=== PATIENT | female | born 1985 | race African-American/Black ===

== ENCOUNTER 2017-11-16 14:36 | Emergency (ER) | payer SELFPAY ==
[2017-11-16 15:47] LABS: Hematocrit 21 % (35-47); Hemoglobin 6.4 g/dl (12.0-16.0); Mean Corpuscular HGB Conc 30 g/dl (31-36); Mean Corpuscular Hemoglobin 19 pg (27-31); Mean Corpuscular Volume 63 fL (80-97); Mean Platelet Volume 8 um3 (7.4-10.4); Platelet Count 312 10^3/ul (150-450); Red Blood Count 3.37 10^6/ul (4.0-5.4); Red Cell Distribution Width 20 % (10.5-15); White Blood Count 5.5 10^3/ul (3.5-10.8)
[2017-11-16] MEDS ORDERED: diPHENhydraMINE PO* 50 MG PO ONE (15:51)
[2017-11-16] MEDS ORDERED: Metoclopramide IV* 5 MG/ML 2 ML VIAL IV ONE (15:51)
[2017-11-16] MEDS ORDERED: Ketorolac INJ* 30 MG/ML 1 ML VIAL IV ONE (15:51)
[2017-11-16] MEDS ORDERED: NS 0.9% 1000 ML* 1,000 ML IV ONE (15:51)
--- NOTE | 2017-11-16 15:57 | RAD ---
INDICATION: Headache. COMPARISON: There are no prior studies available for comparison. TECHNIQUE: Contiguous axial sections of the brain were obtained from the skull base to the vertex without contrast. FINDINGS: The ventricles, cisterns and sulci are within normal limits. No significant focal abnormality or mass effect is seen. There is no evidence for hemorrhage. No significant focal osseous abnormality is seen. The visualized portion of the paranasal sinuses and mastoid air cells appear clear. IMPRESSION: NO EVIDENCE FOR ACUTE INTRACRANIAL ABNORMALITY.
[2017-11-16 16:11] LABS: ABS Basophils 0 10^3/ul (0-0.2); ABS Eosinophils 0.1 10^3/ul (0-0.6); ABS Lymphocytes 1.7 10^3/ul (1.0-4.8); ABS Monocytes 0.5 10^3/ul (0-0.8); ABS Neutrophils 3.2 10^3/ul (1.5-7.7); ABS Nucleated RBC 0 10^3/ul; Eosinophil % 1.3 % (0-6); Lymphocyte % 31.7 % (25-47); Nucleated Red Blood Cells % 0.1
[2017-11-16 19:25] LABS: EGFR Non-African American 108.8 (>60)
[2017-11-16] MEDS ORDERED: Acetaminophen TAB* 325 MG PO ONE (21:42)
--- NOTE | 2017-11-16 21:56 | ED ---
Cecy Blevins Julia, scribed for Kristian Brown MD on 11/16/17 at 1517 . Headache - HPI Summary HPI Summary: This patient is a 32 year old F BIBA to [facility] with a chief complaint of sharp waxing and waning left sided headache every 5 minutes for the past four days. The patient rates the pain 8/10 in severity. Patient reports R finger numbness. Patient denies nausea, photophobia. Patient denies significant history of headaches. Symptoms unchanged by Ibuprofen. - History Of Current Complaint Chief Complaint: EDSyncope Stated Complaint: SYNCOPE/HEADACHE Time Seen by Provider: 11/16/17 14:51 Hx Obtained From: Patient Onset/Duration: Started days ago, Still Present Timing: Constant - waxing and waning Character: Sharp Location of Headache: Other: - left sided Aggravating Factor: Nothing Allevating Factors: Nothing Associated Signs And Symptoms: Other (Noted In Comments) - R finger numbness - Allergies/Home Medications Allergies/Adverse Reactions: Allergies Allergy/AdvReac Type Severity Reaction Status Date / Time No Known Allergies Allergy Verified 11/16/17 20:09 PMH/Surg Hx/FS Hx/Imm Hx Endocrine/Hematology History: Reports: Hx Anemia EENT History: Denies: Hx Deafness Neurological History: Denies: Hx Headaches Infectious Disease History: No Infectious Disease History: Denies: Traveled Outside the [place] in Last 30 Days - Family History Known Family History: Positive: Diabetes - Social History Hx Tobacco Use: Yes Smoking Status (MU): Light Every Day Tobacco Smoker Review of Systems Negative: Photophobia Negative: Nausea Positive: Headache - left side, Numbness - R fingers All Other Systems Reviewed And Are Negative: Yes Physical Exam - Summary Physical Exam Summary: Appearance: The patient is well-nourished in no acute distress and in no acute pain. Skin: The skin is warm and dry and skin color reflects adequate perfusion. HEENT: The head is normocephalic and atraumatic. The pupils are equal and reactive. The conjunctivae are clear and without drainage. Nares are patent and without drainage. Mouth reveals moist mucous membranes and the throat is without erythema and exudate. The external ears are intact. The ear canals are patent and without drainage. The tympanic membranes are intact. Neck: the neck is supple with full range of motion and non-tender. There are no carotid bruits. There is no neck vein distension. Respiratory: Chest is non-tender. Lungs are clear to auscultation and breath sounds are symmetrical and equal. Cardiovascular: Heart is regular rate and rhythm. There is no murmur or rub auscultated. There is no peripheral edema and pulses are symmetrical and equal. Abdomen: The abdomen is soft and non-tender. There are normal bowel sounds heard in all four quadrants and there is no organomegaly palpated. Musculoskeletal: There is no back tenderness noted. Extremities are non-tender with full range of motion. There is good capillary refill. There is no peripheral edema or calf tenderness elicited. Neurological: Patient is alert and oriented to person, place and time. The patient has symmetrical motor strength in all four extremities. Cranial nerves are grossly intact. Deep tendon reflexes are symmetrical and equal in all four extremities. Psychiatric: The patient has an appropriate affect and does not exhibit any anxiety or depression. Triage Information Reviewed: Yes Vital Signs On Initial Exam: Initial Vitals Temp Pulse Resp BP Pulse Ox 98.4 F 68 18 120/76 100 11/16/17 15:07 11/16/17 15:07 11/16/17 15:07 11/16/17 15:07 11/16/17 15:07 Vital Signs Reviewed: Yes Diagnostics - Vital Signs Vital Signs Temp Pulse Resp BP Pulse Ox 11/16/17 15:07 98.4 F 68 18 120/76 100 - Laboratory Lab Results: Lab Results 11/16/17 11/16/17 11/16/17 Range/Units 15:13 15:13 15:13 WBC 5.5 (3.5-10.8) 10^3/ul RBC 3.37 L (4.0-5.4) 10^6/ul Hgb 6.4 L* (12.0-16.0) g/dl Hct 21 L (35-47) % MCV 63 L (80-97) fL MCH 19 L (27-31) pg MCHC 30 L (31-36) g/dl RDW 20 H (10.5-15) % Plt Count 312 (150-450) 10^3/ul MPV 8 (7.4-10.4) um3 Neut % (Auto) 57.9 (38-83) % Lymph % (Auto) 31.7 (25-47) % [place] % (Auto) 8.4 H (0-7) % Eos % (Auto) 1.3 (0-6) % Baso % (Auto) 0.7 (0-2) % Absolute Neuts (auto) 3.2 (1.5-7.7) 10^3/ul Absolute Lymphs (auto) 1.7 (1.0-4.8) 10^3/ul Absolute Monos (auto) 0.5 (0-0.8) 10^3/ul Absolute Eos (auto) 0.1 (0-0.6) 10^3/ul Absolute Basos (auto) 0 (0-0.2) 10^3/ul Absolute Nucleated RBC 0 10^3/ul Nucleated RBC % 0.1 Hypochromasia 2+ Anisocytosis 2+ Target Cells 2+ Hem Pathologist Commnt Pending Sodium 135 (133-145) mmol/L Potassium 4.1 (3.5-5.0) mmol/L Chloride 106 (101-111) mmol/L Carbon Dioxide 25 (22-32) mmol/L Anion Gap 4 (2-11) mmol/L BUN 13 (6-24) mg/dL Creatinine 0.63 (0.51-0.95) mg/dL Est GFR ( Amer) 140.0 (>60) Est GFR (Non-Af Amer) 108.8 (>60) BUN/Creatinine Ratio 20.6 H (8-20) Glucose 77 (70-100) mg/dL POC Glucose (mg/dL) (70-100) mg/dL Calcium 9.3 (8.6-10.3) mg/dL Total Bilirubin 0.30 (0.2-1.0) mg/dL AST 40 H (13-39) U/L ALT 29 (7-52) U/L Alkaline Phosphatase 38 (34-104) U/L Total Protein 7.2 (6.4-8.9) g/dL Albumin 3.9 (3.2-5.2) g/dL Globulin 3.3 (2-4) g/dL Albumin/Globulin Ratio 1.2 (1-3) Blood Type A Positive Antibody Screen Negative Crossmatch See Detail 11/16/17 Range/Units 18:31 WBC (3.5-10.8) 10^3/ul RBC (4.0-5.4) 10^6/ul Hgb (12.0-16.0) g/dl Hct (35-47) % MCV (80-97) fL MCH (27-31) pg MCHC (31-36) g/dl RDW (10.5-15) % Plt Count (150-450) 10^3/ul MPV (7.4-10.4) um3 Neut % (Auto) (38-83) % Lymph % (Auto) (25-47) % [place] % (Auto) (0-7) % Eos % (Auto) (0-6) % Baso % (Auto) (0-2) % Absolute Neuts (auto) (1.5-7.7) 10^3/ul Absolute Lymphs (auto) (1.0-4.8) 10^3/ul Absolute Monos (auto) (0-0.8) 10^3/ul Absolute Eos (auto) (0-0.6) 10^3/ul Absolute Basos (auto) (0-0.2) 10^3/ul Absolute Nucleated RBC 10^3/ul Nucleated RBC % Hypochromasia Anisocytosis Target Cells Hem Pathologist Commnt Sodium (133-145) mmol/L Potassium (3.5-5.0) mmol/L Chloride (101-111) mmol/L Carbon Dioxide (22-32) mmol/L Anion Gap (2-11) mmol/L BUN (6-24) mg/dL Creatinine (0.51-0.95) mg/dL Est GFR ( Amer) (>60) Est GFR (Non-Af Amer) (>60) BUN/Creatinine Ratio (8-20) Glucose (70-100) mg/dL POC Glucose (mg/dL) 105 H (70-100) mg/dL Calcium (8.6-10.3) mg/dL Total Bilirubin (0.2-1.0) mg/dL AST (13-39) U/L ALT (7-52) U/L Alkaline Phosphatase (34-104) U/L Total Protein (6.4-8.9) g/dL Albumin (3.2-5.2) g/dL Globulin (2-4) g/dL Albumin/Globulin Ratio (1-3) Blood Type Antibody Screen Crossmatch Result Diagrams: 11/16/17 15:13 11/16/17 15:13 Lab Statement: Any lab studies that have been ordered have been reviewed, and results considered in the medical decision making process. - CT Brain CT Interpretation Completed By: Radiologist - NO EVIDENCE FOR ACUTE INTRACRANIAL ABNORMALITY. ED Physician has reviewed this report. Headache Course/Dx - Course Course Of Treatment: Ms. Beck presented with a left sided JAFFE. She improved some with a 'migraine cocktail' and CT was negative. Her labs revealed a significant anemia and she had had a syncopal episode when standing up today. She has a job but not much money and no insurance and did not want to stay in the hospital. She has a history of heavy periods and anemia and transfusions. 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 This is likely the cause of her anemia and I gave her one unit of blood here in the ED and encourage F/U with [facility] as they could prorate her visits. - Diagnoses Provider Diagnoses: Headache, Severe anemia Discharge - Discharge Plan Condition: Stable Disposition: HOME Patient Education Materials: Acute Headache (ED), Anemia (ED) Referrals: [facility] [place] PHYS[facility]IAN REFERRAL [facility], [Z.CONVERSION PROVIDER TYPE] - Additional Instructions: Follow up with [facility]. Use referral center to find a primary care physician. The documentation as recorded by the Cecy msith Julia accurately reflects the service I personally performed and the decisions made by me, Kristian Brown MD.
[2017-11-16 22:32] VITALS: BP 117/85
== END 2017-11-16 22:49 | disposition home or self-care (01) ==
LOC: ED 14:36
DX: D64.9 Anemia, unspecified (principal); R51 Headache; F17.210 Nicotine dependence, cigarettes, uncomplicated
CPT/HCPCS: 36415; 36430; 70450; 80053; 85025; 85060; 86850; 86900; 86901; 86922; 99283; A9270-GY; J1885; J2765; P9016

== ENCOUNTER 2017-11-18 12:35 | Emergency (ER) | payer SELFPAY ==
[2017-11-18] MEDS ORDERED: NS 0.9% 1000 ML* 2,000 ML IV ONE (13:22)
[2017-11-18 14:01] LABS: Urine Appearance Clear; Urine Blood Negative (Negative); Urine Color Straw; Urine Ketones Negative (Negative); Urine Protein Negative (Negative); Urine Specific Gravity 1.009 (1.010-1.030); Urine Urobilinogen Negative (Negative)
[2017-11-18 14:12] LABS: EGFR Non-African American 108.8 (>60); Hematocrit 25 % (35-47); Hemoglobin 7.7 g/dl (12.0-16.0); Mean Corpuscular HGB Conc 31 g/dl (31-36); Mean Corpuscular Hemoglobin 20 pg (27-31); Mean Corpuscular Volume 64 fL (80-97); Mean Platelet Volume 9 um3 (7.4-10.4); Platelet Count 296 10^3/ul (150-450); Red Blood Count 3.85 10^6/ul (4.0-5.4); Red Cell Distribution Width 21 % (10.5-15); White Blood Count 6.6 10^3/ul (3.5-10.8)
[2017-11-18 14:37] LABS: Monocytes % 6 % (0-7)
[2017-11-18 16:25] VITALS: BP 127/78
--- NOTE | 2017-11-18 17:53 | ED ---
Sami Blevins Tiffany, scribed for Fidel Park MD on 11/18/17 at 1526 . Complex/Multi-Sys Presentation - HPI Summary HPI Summary: The patient is a 32 y/o F BIBA to [facility] c/o right arm tremors since 11:00 this morning. Symptoms aggravated by nothing. Symptoms alleviated by nothing. Reports chest pain, abdominal pain, ear pain, right-sided tingliness, shortness of breath. Additionally complains of headache that has lasted 4 weeks. Denies recent trauma, fever. Hx of seizure. No hx of headache. Head CT scan from two days ago was negative. - History Of Current Complaint Chief Complaint: EDNeurologicalDeficit Time Seen by Provider: 11/18/17 12:53 Hx Obtained From: Patient Onset/Duration: Lasting Hours - Since 11:00 this morning, Still Present Timing: Constant Aggravating Factor(s): Nothing Alleviating Factor(s): Nothing Associated Signs And Symptoms: Positive: Other - Reports chest pain, abdominal pain, ear pain, right-sided tingliness, shortness of breath, headache that has lasted 4 weeks; NEGATIVE: recent trauma, fever - Allergies/Home Medications Allergies/Adverse Reactions: Allergies Allergy/AdvReac Type Severity Reaction Status Date / Time bee venom protein (honey bee) Allergy Hives Verified 11/18/17 12:47 couch Allergy Hives Uncoded 11/18/17 12:47 seafood Allergy Hives Uncoded 11/18/17 12:47 PMH/Surg Hx/FS Hx/Imm Hx Previously Healthy: No Endocrine/Hematology History: Reports: Hx Anemia Sensory History: Denies: Hx Deafness Neurological History: Denies: Hx Headaches - Surgical History Surgery Procedure, Year, and Place: None Infectious Disease History: No Infectious Disease History: Denies: Traveled Outside the [place] in Last 30 Days - Family History Known Family History: Positive: Diabetes - Social History Alcohol Use: Occasionally Hx Substance Use: No Substance Use Type: Reports: None Substance Use Comment - Amount & Last Used: rare Hx Tobacco Use: Yes Smoking Status (MU): Light Every Day Tobacco Smoker Review of Systems Constitutional: Negative - Recent trauma Negative: Fever Positive: Ear Ache Positive: Chest Pain Positive: Shortness Of Breath Positive: Abdominal Pain Positive: Other - Right arm tremors Neurological: Other - Right-sided tingliness Positive: Headache All Other Systems Reviewed And Are Negative: Yes Physical Exam - Summary Physical Exam Summary: General: well-appearing, no pain distress Skin: warm, color reflects adequate perfusion, dry Head: normal Eyes: EOMI, DANIEL ENT: normal Neck: supple, nontender Respiratory: CTA, breath sounds present Cardiovascular: RRR Abdomen: soft, nontender Bowel: present Musculoskeletal: normal, strength/ROM intact Neurological: normal, sensory/motor intact, A&O x3 Psychological: affect/mood appropriate Triage Information Reviewed: Yes Vital Signs On Initial Exam: Initial Vitals Temp Pulse Resp BP Pulse Ox 98.3 F 99 29 114/86 100 11/18/17 12:39 11/18/17 12:39 11/18/17 12:39 11/18/17 12:39 11/18/17 12:39 Vital Signs Reviewed: Yes Diagnostics - Vital Signs Vital Signs Temp Pulse Resp BP Pulse Ox 11/18/17 14:00 81 15 124/72 98 11/18/17 13:38 98 11/18/17 13:30 101 26 128/82 100 11/18/17 13:10 84 20 131/80 100 11/18/17 13:08 91 22 100 11/18/17 12:47 96 44 114/86 100 11/18/17 12:46 87 27 100 11/18/17 12:39 98.3 F 99 29 114/86 100 - Laboratory Lab Results: Lab Results 11/18/17 11/18/17 11/18/17 Range/Units 13:36 13:36 13:36 WBC 6.6 (3.5-10.8) 10^3/ul RBC 3.85 L (4.0-5.4) 10^6/ul Hgb 7.7 L (12.0-16.0) g/dl Hct 25 L (35-47) % MCV 64 L (80-97) fL MCH 20 L (27-31) pg MCHC 31 (31-36) g/dl RDW 21 H (10.5-15) % Plt Count 296 (150-450) 10^3/ul MPV 9 (7.4-10.4) um3 Neut % (Auto) Not Reportable Lymph % (Auto) Not Reportable [place] % (Auto) Not Reportable Eos % (Auto) Not Reportable Baso % (Auto) Not Reportable Absolute Neuts (auto) Not Reportable Absolute Lymphs (auto) Not Reportable Absolute Monos (auto) Not Reportable Absolute Eos (auto) Not Reportable Absolute Basos (auto) Not Reportable Absolute Nucleated RBC Not Reportable Neutrophils % 78 (38-83) % Lymphocytes % 14 L (25-47) % Monocytes % 6 (0-7) % Eosinophils % 2 (0-6) % Basophils % 0 (0-2) % Nucleated RBC % Not Reportable Abs Neuts (Manual) 5.1 (1.5-7.7) 10^3/ul Abs Lymphs (Manual) 0.9 L (1.0-4.8) 10^3/ul Abs Monocytes (Manual) 0.4 (0-0.8) 10^3/ul Absolute Eos (Manual) 0.1 (0-0.6) 10^3/ul Abs Basophils (Manual) 0 (0-0.2) 10^3/ul Normal RBC Morphology Not Reportable Polychromasia 1+ Hypochromasia 1+ Anisocytosis 1+ Microcytosis 2+ Target Cells 1+ Sodium 134 (133-145) mmol/L Potassium 3.4 L (3.5-5.0) mmol/L Chloride 105 (101-111) mmol/L Carbon Dioxide 20 L (22-32) mmol/L Anion Gap 9 (2-11) mmol/L BUN 9 (6-24) mg/dL Creatinine 0.63 (0.51-0.95) mg/dL Est GFR ( Amer) 140.0 (>60) Est GFR (Non-Af Amer) 108.8 (>60) BUN/Creatinine Ratio 14.3 (8-20) Glucose 89 (70-100) mg/dL Lactic Acid 2.5 H* (0.5-2.0) mmol/L Calcium 9.8 (8.6-10.3) mg/dL Total Bilirubin 0.50 (0.2-1.0) mg/dL AST 44 H (13-39) U/L ALT 42 (7-52) U/L Alkaline Phosphatase 51 (34-104) U/L Total Creatine Kinase 157 (10-223) U/L C-Reactive Protein < 1.00 (< 5.00) mg/L Total Protein 7.7 (6.4-8.9) g/dL Albumin 4.1 (3.2-5.2) g/dL Globulin 3.6 (2-4) g/dL Albumin/Globulin Ratio 1.1 (1-3) Lipase 32 (11.0-82.0) U/L TSH 1.04 (0.34-5.60) mcIU/mL Beta HCG, Quant < 0.60 mIU/mL Urine Color Urine Appearance Urine pH (5-9) Ur Specific [place] (1.010-1.030) Urine Protein (Negative) Urine Ketones (Negative) Urine Blood (Negative) Urine Nitrate (Negative) Urine Bilirubin (Negative) Urine Urobilinogen (Negative) Ur Leukocyte Esterase (Negative) Urine Glucose (Negative) Salicylates < 2.50 (<30) mg/dL Urine Opiates Screen (None Detect) Acetaminophen < 15 mcg/mL Ur Barbiturates Screen (None Detect) Ur Phencyclidine Scrn (None Detect) Ur Amphetamines Screen (None Detect) U Benzodiazepines Scrn (None Detect) Urine Cocaine Screen (None Detect) U Cannabinoids Screen (None Detect) Serum Alcohol < 10 (<10) mg/dL 11/18/17 11/18/17 Range/Units 13:36 13:36 WBC (3.5-10.8) 10^3/ul RBC (4.0-5.4) 10^6/ul Hgb (12.0-16.0) g/dl Hct (35-47) % MCV (80-97) fL MCH (27-31) pg MCHC (31-36) g/dl RDW (10.5-15) % Plt Count (150-450) 10^3/ul MPV (7.4-10.4) um3 Neut % (Auto) Lymph % (Auto) [place] % (Auto) Eos % (Auto) Baso % (Auto) Absolute Neuts (auto) Absolute Lymphs (auto) Absolute Monos (auto) Absolute Eos (auto) Absolute Basos (auto) Absolute Nucleated RBC Neutrophils % (38-83) % Lymphocytes % (25-47) % Monocytes % (0-7) % Eosinophils % (0-6) % Basophils % (0-2) % Nucleated RBC % Abs Neuts (Manual) (1.5-7.7) 10^3/ul Abs Lymphs (Manual) (1.0-4.8) 10^3/ul Abs Monocytes (Manual) (0-0.8) 10^3/ul Absolute Eos (Manual) (0-0.6) 10^3/ul Abs Basophils (Manual) (0-0.2) 10^3/ul Normal RBC Morphology Polychromasia Hypochromasia Anisocytosis Microcytosis Target Cells Sodium (133-145) mmol/L Potassium (3.5-5.0) mmol/L Chloride (101-111) mmol/L Carbon Dioxide (22-32) mmol/L Anion Gap (2-11) mmol/L BUN (6-24) mg/dL Creatinine (0.51-0.95) mg/dL Est GFR ( Amer) (>60) Est GFR (Non-Af Amer) (>60) BUN/Creatinine Ratio (8-20) Glucose (70-100) mg/dL Lactic Acid (0.5-2.0) mmol/L Calcium (8.6-10.3) mg/dL Total Bilirubin (0.2-1.0) mg/dL AST (13-39) U/L ALT (7-52) U/L Alkaline Phosphatase (34-104) U/L Total Creatine Kinase (10-223) U/L C-Reactive Protein (< 5.00) mg/L Total Protein (6.4-8.9) g/dL Albumin (3.2-5.2) g/dL Globulin (2-4) g/dL Albumin/Globulin Ratio (1-3) Lipase (11.0-82.0) U/L TSH (0.34-5.60) mcIU/mL Beta HCG, Quant mIU/mL Urine Color Straw Urine Appearance Clear Urine pH 7.0 (5-9) Ur Specific [place] 1.009 L (1.010-1.030) Urine Protein Negative (Negative) Urine Ketones Negative (Negative) Urine Blood Negative (Negative) Urine Nitrate Negative (Negative) Urine Bilirubin Negative (Negative) Urine Urobilinogen Negative (Negative) Ur Leukocyte Esterase Negative (Negative) Urine Glucose Negative (Negative) Salicylates (<30) mg/dL Urine Opiates Screen None detected (None Detect) Acetaminophen mcg/mL Ur Barbiturates Screen None detected (None Detect) Ur Phencyclidine Scrn None detected (None Detect) Ur Amphetamines Screen None detected (None Detect) U Benzodiazepines Scrn None detected (None Detect) Urine Cocaine Screen None detected (None Detect) U Cannabinoids Screen None detected (None Detect) Serum Alcohol (<10) mg/dL Result Diagrams: 11/18/17 13:36 11/18/17 13:36 Lab Statement: Any lab studies that have been ordered have been reviewed, and results considered in the medical decision making process. - EKG 14:16 Cardiac Rate: NL - 77 BPM EKG Rhythm: Sinus Rhythm ST Segment: Normal Ectopy: None Re-Evaluation - Re-Evaluation First Eval Re-Evaluation Time: 14:14 Change: Improved Comment: Patient feels better. Agreeable to discharge. Complex Multi-Symp Course/Dx Course Of Treatment: BP noted and advised to follow up with PCP. Allergies noted. DISCUSSED RESULTS WITH PATIENT. SHE REPORTS SHE HAS HAD THE JAFFE FOR WEEKS. SHE HAD A NORMAL HEAD CT 11/16/17. WE DISCUSSED CT IMAGING OF HER CHEST AND ABD FOR THE PAIN. THE HAD GONE AWAY AND SHE DECLINED THE CTS. F/U PMD; RETURN IF WORSE. - Diagnoses Provider Diagnoses: Headache, Chest pain, Abdominal pain, Anemia Discharge - Discharge Plan Condition: Stable Disposition: HOME Patient Education Materials: Chest Pain (ED), Acute Abdominal Pain (ED), Anemia (ED), General Headache (ED) Referrals: [facility] [place] [place] PHYSICIAN REFERRAL [Outside] Additional Instructions: FOLLOW UP WITH YOUR DOCTOR. RETURN TO THE EMERGENCY DEPARTMENT FOR ANY WORSENING OF YOUR CONDITION OR QUESTIONS OR CONCERNS. YOUR BLOOD PRESSURE WAS ELEVATED TODAY; FOLLOW UP WITH YOUR PRIMARY CARE DOCTOR WITHIN ONE WEEK. The documentation as recorded by the Sami smith Tiffany accurately reflects the service I personally performed and the decisions made by me, Fidel Park MD.
== END 2017-11-18 16:37 | disposition home or self-care (01) ==
LOC: ED 12:35
DX: R51 Headache (principal); R07.89 Other chest pain; R10.9 Unspecified abdominal pain; D64.9 Anemia, unspecified; H92.09 Otalgia, unspecified ear; R06.02 Shortness of breath; Z32.02 Encounter for pregnancy test, result negative; F17.210 Nicotine dependence, cigarettes, uncomplicated
CPT/HCPCS: 36415; 80053; 80307; 80320; 80329; 81003; 82550; 83605; 83690; 84443; 84702; 85025; 85379; 86140; 93005; 96360; 99282; G0480